=== PATIENT | female | born 1980 | race Hispanic/Latino ===

== ENCOUNTER 2017-05-20 21:57 | Emergency (ER) | payer BC ==
[2017-05-20 22:51] VITALS: BMI 24.3
[2017-05-20 23:33] LABS: SQUAMOUS EPITHIAL < 1 /hpf (0-5); URINE BACTERIA RARE (<OCC); URINE BILIRUBIN NEGATIVE (NEGATIVE); URINE BLOOD NEGATIVE (NEGATIVE); URINE CLARITY SLIGHTY-CLOUDY (Clear); URINE COLOR YELLOW (YELLOW); URINE GLUCOSE (UA) 50 mg/dL (Normal); URINE LEUKOCYTE ESTERASE NEG Leu/uL (Negative); URINE PROTEIN NEGATIVE (NEGATIVE); URINE UROBILINOGEN 0.2-1.0 mg/dL (0.2-1.0)
--- NOTE | 2017-05-21 10:25 | OBHP ---
Datetime: 05/20/2017 22:34 IP Adm Impression: , intrauterine IP Chief Complaint Other: vaginal bleeding IP Admit Plan: Observation/Evaluation Admit Comment, IP Provider: CC: vaginal bleeding HPI: 36 YO @32.3wks IUP presents to [facility] for vaginal bleeding. Pt states that she has had few drops of fresh blood every time she urinates. She feels that it may be from her vagina. No blood on her pad through the day. Of note, pt had history of constipation and states that she had a large BM l ast night and there was some associated perianal discomfort. Endorsing good FM, no LOF, no ctx. Blood noted with BM this morning. No dysuria, no blood with urination stream. Denies n/v/d/c and f dread. MD: [facility] OBHx: FT NVD 22months ago, no complications with thus far PMH: denies SurgH; hipe surgery and L ingunial hernia FH: denies SH: denies ETOH, smoking and illict drug use Allergies: NKDA Meds: PNV PE GEN: NAD Cardio: S1S2 no additional heart sounds Resp: clear breath sounds b/l Abdomen: Gravid, NT, bs+ Neuro: AAo x 3 Ext: NT, no edema noted Speculum: cervic is thick and closed. Small white discharge noted in the vaginal vault Some dried blood noted around the anus A/P: 36 YO @32.3 wks IUP is evaluated for bleeding. Likely from rectum per exam. No acute ble eding noted, unlikely to be from vagina. FM is reactive. -continue FM -UA -will reasses Pt seen and examined with Dr. Yanelis Chopra, PGY I Addendum: I saw examined posterior presentation. No evidence of bleeding at this time. Cervix long, closed, posterior. heart tracing reassuring. Urinalysis negative. Patient discharged home and will foll ow up with primary doctor as already scheduled. Patient given labor precautions. Yanelis Pelvic Type - PN: Adequate Extremities - PN: Normal Abdomen - PN: Normal Back - PN: Not Done Breast - PN: Not Done Lungs - PN: Normal Heart - PN: Normal Thyroid - PN: Not Done Neurologic - PN: Normal HEENT - PN: Normal General - PN: Normal FHR - Baseline A Provider: [id number] Pool Provider: Negative EGA AdmitDate IP: 32.3 Vital Signs Provider: Reviewed; Within Normal Limits IP Chief Complaint: Other NICHD Variability Prov Fetus A: Moderate 6-25bpm NICHD Accel Fetus A IP Provider: [id number] FHR Category Provider Fetus A: Category I Dilatation, Provider: closed Genitourinary Exam: Normal DTRs - PN: Not Done
[2017-05-24 18:03] VITALS: BP 114/67; PULSE 74
== END 2017-05-20 23:45 | disposition home or self-care (01) ==
LOC: H.EROB2 21:57
DX: O46.93 Antepartum hemorrhage, unspecified, third trimester (principal); Z3A.32 32 weeks gestation of pregnancy